=== PATIENT | male | born 1995 | race Caucasian/White ===

== ENCOUNTER → 2021-05-27 | Outpatient (CLI) | payer SELFPAY ==
[~2021-05-27] MED LIST: ACET325UDC PO; ALBU90OI6 INH; AMOX50SU PO; CODGUAEL PO; FLUT44OIA IH; HYDACE5325 PO; OSEL75CA PO; PROM25 PO; RXHYD5325 PO
[2021-05-29 14:48] LABS: CORONAVIRUS (COVID19) CSH-NRL Negative (Negative)
== END | disposition home or self-care (01) ==
LOC: LAB SHORT 12:35
PROVIDERS: Family Medicine
DX: Z20.822 Contact with and (suspected) exposure to COVID-19 (principal)
CPT/HCPCS: U0003

== ENCOUNTER 2022-09-18 06:05 | Day surgery (SDC) | payer OTHER ==
[2022-09-18] VITALS (11 sets, daily range): BP systolic 91–120; BP diastolic 45–73
[~2022-09-18] VITALS: Ht 165.1 cm; Wt 64.5 kg
--- NOTE | 2022-09-18 07:00 | NUR ---
Ambulatory in Day SurgeryLungs clear T/O to Auscultation. History, Chart, Medications and Allergies reviewed before start of procedure.Patient confirms NPO status and agrees with scheduled surgery.
--- NOTE | 2022-09-18 08:43 | NUR ---
09/18/22 0843 Hoda Leahy 1 TONSIL SPONGE AND 1 LARGE PIECE OF XEROFORM PACKED IN SURGICAL SITE
--- NOTE | 2022-09-18 09:20 | NUR ---
0911 REPORT RECEIVED FROM ALLA CEBALLOS. VSS AND CONSISTENT WITH PT BASELINE. PT ABLE TO REPOSITION SELF IN BED. PT REQUESTING PO FLUIDS AND FOOD AND TOLERATING THEM WELL. PT DENIES PAIN OR NAUSEA AT THIS TIME. PT DRESSING C/D/I WITHOUT DRAINAGE, REDNESS, OR SWELLING.
--- NOTE | 2022-09-18 09:40 | NUR ---
Patient up to Ambulate independently. Gait steady. VSS AND CONSISTENT WITH PT BASELINE. Discharge instructions reviewed with patient. Patient verbalizes understanding. Copy given to patient to take home. Dressing to procedure site clean, dry, intact with no visible drainage, swelling, erythema or bruising noted. Patient States Post-Procedure ride home has been arranged. Discharged via wheelchair to private car for ride home. PT BELONGINGS RETURNED TO PT.
== END 2022-09-18 22:43 | disposition home or self-care (01) ==
LOC: ORSCMMR 06:05 → ORD 07:30 → ORSCMMR 22:43
PROVIDERS: Surgery
PROC: 0JB90ZZ Excision of Buttock Subcutaneous Tissue and Fascia, Open Approach (ICD-10-PCS; principal; 2022-09-18 07:30)
DX: L05.92 Pilonidal sinus without abscess (principal); L05.91 Pilonidal cyst without abscess; F17.290 Nicotine dependence, other tobacco product, uncomplicated
CPT/HCPCS: 88305; J0690; J1100; J1885; J2250; J2405; J2704; J2710; J3010; J7120